=== PATIENT | female | born 1945 | race Caucasian/White ===

== ENCOUNTER 2016-11-29 17:04 | Inpatient (IN) | payer OTHER ==
[~2016-11-29] VITALS: Ht 154.9 cm; Wt 86.3 kg
[~2016-11-29 17:04] MED LIST: ADVAIR 100/501 DISK IH; AMARYL1 MG PO; AMBIEN10 MG PO; APRESOLINE25 MG PO; ASPIR 8181 M1 PO; AUGMENTIN500 MG PO; CARBIDOPA-LEVO1 EAC7 PO; CARDIZEM CD,CA180 MG PO; CELEXA20 MG PO; CRESTOR5 MG PO; DOXYCYCLINE HY100 M3 PO; ENDOCET 5-3251 EACH PO; ESTRACE2 MG PO; GLUCOPHAGE1000 MG PO; IBUPROFEN200 M1 PO; IRON18 MG PO; LEVEMIR100 UNIT/2 SC; LEVOFLOXACIN250 MG PO; LIPITOR10 MG PO; LO-DOSE ASPIRIN81 M2 PO; NEURONTIN400 MG PO; NITROSTAT0.4 MG SL; NORCO 5/3251 TABLET PO; NORVASC10 MG PO; PANTOPRAZOLE SO40 MG PO; PLAVIX75 MG PO; PREDNISONE20 MG PO; PRENATAL TABLE1 EAC3 PO; PRINIVIL20 MG PO; PROVENTIL,VENTOL2 MG PO; SINEMET 25-1001 EACH PO; SYNTHROID50 MCG PO; TRIAMCINOLONE A15 GM TP; VENTOLIN HFA18 GM IH; ZOFRAN4 MG PO; ZOLPIDEM TARTRA10 MG PO
[2016-11-29 18:11] LABS: EOSINOPHIL (%) 0.3 % (0-5); HEMATOCRIT 30.3 % (36.0-46.0); IMMATURE GRANULOCYTE (%) 0.1 % (0.0-0.7); IMMATURE GRANULOCYTE COUNT 0.1 K/uL; LYMPHOCYTE COUNT 1.9 K/uL (1.0-2.8); MCH 24.6 PG (29.0-34.0); MCHC 31.7 G/DL (30.0-36.0); MCV 77.5 FL (83-99); MEAN PLAT.VOLUME 10.6 uM^3 (9.5-12.4); MONOCYTE (%) 6.6 % (3-12); MONOCYTE COUNT 0.8 K/uL (0-0.8); NEUTROPHIL (%) 77.7 % (45-76); NEUTROPHIL COUNT 9.6 K/uL (1.8-6.4); PLATELET COUNT 243 K/uL (156-360); RBC DIS.WIDTH-CV 15.2 % (11.8-14.6); RBC DIS.WIDTH-SD 41.8 % (39-53); RED BLOOD COUNT 3.91 M/uL (3.80-5.20); WHITE BLOOD COUNT 12.3 K/uL (4.1-10.2)
[2016-11-29 18:25] LABS: CHLORIDE 104 mEq/L (99-109); POTASSIUM 3.7 mEq/L (3.7-5.4); SODIUM 136 mEq/L (136-147)
[2016-11-29 18:27] LABS: GLUCOSE 141 mg/dL (70-99)
[2016-11-29 18:28] LABS: ANION GAP 12 MEQ/L (2-14)
[2016-11-29 18:29] LABS: TOTAL BILIRUBIN 0.4 mg/dL (0.0-1.0)
[2016-11-29 18:30] LABS: ALKALINE PHOSPHATASE 90 IU/L (3-129); GFR ESTIMATE (CALCULATED) > 59 mL/min/
[2016-11-29 18:32] LABS: UREA NITROGEN (BUN) 11 mg/dL (9-23)
[2016-11-29 18:33] LABS: TROP-I INTERPRETATION NEGATIVE; TROPONIN-I < 0.01 ng/mL (0.0-0.30)
[2016-11-30 00:09] LABS: POINT-OF-CARE METER ID UU13113831
[2016-11-30 00:10] VITALS: BP 183/70
[2016-11-30 01:03] LABS: TROP-I INTERPRETATION NEGATIVE; TROPONIN-I < 0.01 ng/mL (0.0-0.30)
[2016-11-30 04:45] VITALS: BP 140/63
[2016-11-30 07:11] LABS: TROP-I INTERPRETATION NEGATIVE; TROPONIN-I < 0.01 ng/mL (0.0-0.30)
[2016-11-30 07:27] LABS: POINT-OF-CARE METER ID UU14162513
[2016-11-30 07:29] LABS: MCH 24.1 PG (29.0-34.0); MCHC 30.7 G/DL (30.0-36.0); MCV 78.5 FL (83-99); MEAN PLAT.VOLUME 10.7 uM^3 (9.5-12.4); PLATELET COUNT 202 K/uL (156-360); RBC DIS.WIDTH-CV 15.4 % (11.8-14.6); RED BLOOD COUNT 3.44 M/uL (3.80-5.20)
[2016-11-30 07:30] LABS: WHITE BLOOD COUNT 7.4 K/uL (4.1-10.2)
[2016-11-30 07:34] LABS: ALKALINE PHOSPHATASE 85 IU/L (3-129); ANION GAP 7 MEQ/L (2-14); CHLORIDE 102 MEQ/L (99-109); GFR ESTIMATE (CALCULATED) 58 mL/min/; GLUCOSE 109 mg/dL (70-99); IRON 22 MCG/DL (35-150); POTASSIUM 3.6 MEQ/L (3.7-5.4); SAMPLE HEMOLYSIS CHECK 0; SAMPLE ICTERIC CHECK 0; SAMPLE LIPEMIA CHECK 0; SODIUM 137 MEQ/L (136-147); TOTAL BILIRUBIN 0.4 MG/DL (0.0-1.0); UREA NITROGEN (BUN) 12 mg/dL (9-23)
[2016-11-30 08:00] VITALS: BP 118/58
[2016-11-30 12:00] VITALS: BP 133/63
[2016-11-30 12:47] LABS: POINT-OF-CARE METER ID UU14162513
[2016-11-30 16:00] VITALS: BP 118/58
[2016-11-30 17:25] LABS: POINT-OF-CARE METER ID UU14162513
[2016-11-30 19:15] VITALS: BP 156/62
[2016-11-30 22:11] LABS: POINT-OF-CARE METER ID UU14162513
[2016-12-01 00:18] VITALS: BP 136/63
[2016-12-01 04:58] VITALS: BP 124/58
[2016-12-01 07:10] LABS: HEMATOCRIT 25.6 % (36.0-46.0); MCH 23.6 PG (29.0-34.0); MCHC 30.1 G/DL (30.0-36.0); MCV 78.5 FL (83-99); MEAN PLAT.VOLUME 10.5 uM^3 (9.5-12.4); PLATELET COUNT 202 K/uL (156-360); RBC DIS.WIDTH-CV 15.8 % (11.8-14.6); RBC DIS.WIDTH-SD 45.5 % (39-53); RED BLOOD COUNT 3.26 M/uL (3.80-5.20)
[2016-12-01 07:26] LABS: POINT-OF-CARE METER ID UU13113700
[2016-12-01 08:15] VITALS: BP 118/57
[2016-12-01 12:00] VITALS: BP 119/56
[2016-12-01 12:20] LABS: POINT-OF-CARE METER ID UU14162513
[2016-12-01 16:02] VITALS: BP 111/54
[2016-12-01 16:08] LABS: HEMATOCRIT 27.4 % (36.0-46.0); MCV 78.7 FL (83-99)
[2016-12-01 19:15] VITALS: BP 145/62
[2016-12-01 21:23] LABS: POINT-OF-CARE METER ID UU14162513
[2016-12-02 05:52] LABS: HEMATOCRIT 28.7 % (36.0-46.0); MCHC 30.7 G/DL (30.0-36.0); MCV 78.4 FL (83-99); MEAN PLAT.VOLUME 10.2 uM^3 (9.5-12.4); PLATELET COUNT 219 K/uL (156-360); RBC DIS.WIDTH-CV 15.9 % (11.8-14.6); RBC DIS.WIDTH-SD 45.2 % (39-53); RED BLOOD COUNT 3.66 M/uL (3.80-5.20); WHITE BLOOD COUNT 6.9 K/uL (4.1-10.2)
[2016-12-02 05:57] VITALS: BP 131/60
[2016-12-02 07:45] VITALS: BP 107/81; BP 149/87
[2016-12-02 08:54] LABS: POINT-OF-CARE METER ID UU13113831
[2016-12-02 10:41] LABS: HEMATOCRIT 28.6 % (36.0-46.0); MCHC 30.4 G/DL (30.0-36.0); MCV 78.8 FL (83-99); MEAN PLAT.VOLUME 10.8 uM^3 (9.5-12.4); PLATELET COUNT 218 K/uL (156-360); RBC DIS.WIDTH-CV 15.9 % (11.8-14.6); RBC DIS.WIDTH-SD 46.3 % (39-53); RED BLOOD COUNT 3.63 M/uL (3.80-5.20); WHITE BLOOD COUNT 6.9 K/uL (4.1-10.2)
[2016-12-02 11:18] LABS: ANION GAP 13 MEQ/L (2-14); CHLORIDE 97 MEQ/L (99-109); GFR ESTIMATE (CALCULATED) 52 mL/min/; GLUCOSE 424 mg/dL (70-99); MAGNESIUM 1.7 mg/dl (1.3-2.7); POTASSIUM 4.3 MEQ/L (3.7-5.4); SAMPLE HEMOLYSIS CHECK 0; SAMPLE ICTERIC CHECK 0; SAMPLE LIPEMIA CHECK 0; SODIUM 132 MEQ/L (136-147); UREA NITROGEN (BUN) 22 mg/dL (9-23)
[2016-12-02 12:45] VITALS: BP 114/56
[2016-12-02 16:27] VITALS: BP 124/56
[2016-12-02 20:11] VITALS: BP 116/56
[2016-12-02 23:39] VITALS: BP 143/61
[2016-12-03 04:07] VITALS: BP 120/56
[2016-12-03 06:30] LABS: HEMATOCRIT 26.9 % (36.0-46.0); MCH 24.1 PG (29.0-34.0); MCHC 30.9 G/DL (30.0-36.0); MEAN PLAT.VOLUME 10.4 uM^3 (9.5-12.4); PLATELET COUNT 233 K/uL (156-360); RBC DIS.WIDTH-CV 16.3 % (11.8-14.6); RBC DIS.WIDTH-SD 46.3 % (39-53); RED BLOOD COUNT 3.45 M/uL (3.80-5.20)
[2016-12-03 06:31] LABS: WHITE BLOOD COUNT 13.2 K/uL (4.1-10.2)
[2016-12-03 07:41] LABS: ANION GAP 12 MEQ/L (2-14); CHLORIDE 99 MEQ/L (99-109); GFR ESTIMATE (CALCULATED) 43 mL/min/; GLUCOSE 238 mg/dL (70-99); POTASSIUM 5.1 MEQ/L (3.7-5.4); SAMPLE HEMOLYSIS CHECK 0; SAMPLE ICTERIC CHECK 0; SAMPLE LIPEMIA CHECK 0; SODIUM 134 MEQ/L (136-147)
[2016-12-03 07:53] LABS: MAGNESIUM 2.1 mg/dl (1.3-2.7); UREA NITROGEN (BUN) 39 mg/dL (9-23)
[2016-12-03 08:00] VITALS: BP 108/55
[2016-12-03 12:00] VITALS: BP 100/49
[2016-12-03 16:20] VITALS: BP 119/57
[2016-12-03 23:20] VITALS: BP 177/76
[2016-12-04 07:12] VITALS: BP 120/58
[2016-12-04 10:08] LABS: ANION GAP 9 MEQ/L (2-14); CHLORIDE 105 MEQ/L (99-109); POTASSIUM 4.5 MEQ/L (3.7-5.4); SAMPLE HEMOLYSIS CHECK 0; SAMPLE ICTERIC CHECK 0; SAMPLE LIPEMIA CHECK 0; SODIUM 140 MEQ/L (136-147)
[2016-12-04 10:26] LABS: GFR ESTIMATE (CALCULATED) 47 mL/min/; GLUCOSE 113 mg/dL (70-99); UREA NITROGEN (BUN) 34 mg/dL (9-23)
[2016-12-04 11:23] LABS: HEMATOCRIT 26.8 % (36.0-46.0); MCH 24.4 PG (29.0-34.0); MCHC 31.7 G/DL (30.0-36.0); MEAN PLAT.VOLUME 10.3 uM^3 (9.5-12.4); PLATELET COUNT 253 K/uL (156-360); RBC DIS.WIDTH-CV 16.3 % (11.8-14.6); RBC DIS.WIDTH-SD 45.4 % (39-53); RED BLOOD COUNT 3.48 M/uL (3.80-5.20); WHITE BLOOD COUNT 14.1 K/uL (4.1-10.2)
[2016-12-04 11:40] VITALS: BP 137/63
[2016-12-04 11:47] LABS: ADD MIUA? YES; BILIRUBIN NEGATIVE; BLOOD NEGATIVE; COLOR YELLOW ((YELLOW)); GLUCOSE (STRIP) NEGATIVE; KETONES NEGATIVE; LEUKOCYTES LARGE; NITRITE NEGATIVE; PH, URINE 6.5 (5-8); PROTEIN (STRIP) NEGATIVE; SPECIFIC GRAVITY 1.008 (1.000-1.030); UROBILINOGEN 0.2 MG/DL (0.2-1.0)
[2016-12-04 11:49] LABS: BACTERIA NONE SEEN; CASTS NONE SEEN /LPF; CRYSTALS NONE SEEN; MUCUS NONE SEEN; PATHOLOGICAL CAST NONE SEEN; RED BLOOD CELLS 0-5 /HPF (0-5); SMALL ROUND CELL NONE SEEN; YEAST-LIKE CELL PRESENT
[2016-12-04 11:55] LABS: Estimated Average Glucose 169 mg/dL (70-123); HEMOGLOBIN A1c (GLYCOHEMOGLOB) 7.5 % HGB (Below 5.7)
[2016-12-04 12:06] LABS: EPITHELIAL CELLS 1+
[2016-12-04 12:07] LABS: UCUL ADDED? NO; WHITE BLOOD CELLS 20-30 /HPF (0-5)
[2016-12-04 16:03] LABS: POINT-OF-CARE METER ID UU13113831
[2016-12-04 16:20] LABS: POINT-OF-CARE METER ID UU13113694
[2016-12-04 17:01] LABS: POINT-OF-CARE METER ID UU13113819
[2016-12-04 17:46] VITALS: BP 155/67
[2016-12-04 19:20] VITALS: BP 148/62
[2016-12-05 03:41] VITALS: BP 138/65
[2016-12-05 08:07] LABS: ALKALINE PHOSPHATASE 71 IU/L (3-129); ANION GAP 9 MEQ/L (2-14); CHLORIDE 102 MEQ/L (99-109); GFR ESTIMATE (CALCULATED) 43 mL/min/; GLUCOSE 132 mg/dL (70-99); POTASSIUM 4.3 MEQ/L (3.7-5.4); SAMPLE HEMOLYSIS CHECK 0; SAMPLE ICTERIC CHECK 0; SAMPLE LIPEMIA CHECK 0; SODIUM 136 MEQ/L (136-147); TOTAL BILIRUBIN 0.3 MG/DL (0.0-1.0); UREA NITROGEN (BUN) 30 mg/dL (9-23)
[2016-12-05 08:16] LABS: EOSINOPHIL (%) 0.4 % (0-5); HEMATOCRIT 31.3 % (36.0-46.0); IMMATURE GRANULOCYTE (%) 0.1 % (0.0-0.7); LYMPHOCYTE COUNT 0.4 K/uL (1.0-2.8); MCH 23.8 PG (29.0-34.0); MCHC 30.7 G/DL (30.0-36.0); MCV 77.7 FL (83-99); MEAN PLAT.VOLUME 10.6 uM^3 (9.5-12.4); MONOCYTE (%) 9.1 % (3-12); MONOCYTE COUNT 0.7 K/uL (0-0.8); NEUTROPHIL (%) 84.5 % (45-76); PLATELET COUNT 226 K/uL (156-360); RBC DIS.WIDTH-CV 16.3 % (11.8-14.6); RBC DIS.WIDTH-SD 46.6 % (39-53); RED BLOOD COUNT 4.03 M/uL (3.80-5.20)
[2016-12-05 08:17] LABS: WHITE BLOOD COUNT 7.1 K/uL (4.1-10.2)
[2016-12-05 08:19] VITALS: BP 194/81
[2016-12-05 18:11] LABS: C DIFF TOXIN NEGATIVE (NEGATIVE)
[2016-12-05 18:15] LABS: PROBE CHECK PASS; SPECIMEN PROCESSING CONTROL PASS
[2016-12-05 18:17] VITALS: BP 116/58
[2016-12-05 19:27] VITALS: BP 144/62
[2016-12-05 23:34] VITALS: BP 141/67
[2016-12-06 03:34] VITALS: BP 155/68
[2016-12-06 06:24] LABS: HEMATOCRIT 26.7 % (36.0-46.0); MCH 24.6 PG (29.0-34.0); MCHC 31.8 G/DL (30.0-36.0); MCV 77.4 FL (83-99); MEAN PLAT.VOLUME 10.2 uM^3 (9.5-12.4); PLATELET COUNT 196 K/uL (156-360); RBC DIS.WIDTH-CV 16.2 % (11.8-14.6); RBC DIS.WIDTH-SD 46.3 % (39-53); RED BLOOD COUNT 3.45 M/uL (3.80-5.20); WHITE BLOOD COUNT 5.6 K/uL (4.1-10.2)
[2016-12-06 06:48] LABS: EOSINOPHIL (%) 0.5 % (0-5); IMMATURE GRANULOCYTE (%) 0.5 % (0.0-0.7); LYMPHOCYTE COUNT 1.2 K/uL (1.0-2.8); MONOCYTE (%) 8.8 % (3-12); MONOCYTE COUNT 0.5 K/uL (0-0.8); NEUTROPHIL COUNT 3.8 K/uL (1.8-6.4)
[2016-12-06 07:17] LABS: ALKALINE PHOSPHATASE 62 IU/L (3-129); ANION GAP 7 MEQ/L (2-14); CHLORIDE 103 MEQ/L (99-109); GFR ESTIMATE (CALCULATED) 52 mL/min/; GLUCOSE 151 mg/dL (70-99); POTASSIUM 3.9 MEQ/L (3.7-5.4); SAMPLE HEMOLYSIS CHECK 0; SAMPLE ICTERIC CHECK 0; SAMPLE LIPEMIA CHECK 0; SODIUM 135 MEQ/L (136-147); TOTAL BILIRUBIN 0.3 MG/DL (0.0-1.0); UREA NITROGEN (BUN) 18 mg/dL (9-23)
[2016-12-06 07:22] VITALS: BP 144/67
[2016-12-06 12:49] LABS: HEMATOCRIT 28.3 % (36.0-46.0); MCHC 31.1 G/DL (30.0-36.0); MCV 77.3 FL (83-99); MEAN PLAT.VOLUME 10.3 uM^3 (9.5-12.4); PLATELET COUNT 230 K/uL (156-360); RBC DIS.WIDTH-CV 16.2 % (11.8-14.6); RBC DIS.WIDTH-SD 45.9 % (39-53); RED BLOOD COUNT 3.66 M/uL (3.80-5.20); WHITE BLOOD COUNT 6.5 K/uL (4.1-10.2)
[2016-12-06 13:30] LABS: ANION GAP 10 MEQ/L (2-14); CHLORIDE 101 MEQ/L (99-109); GFR ESTIMATE (CALCULATED) 47 mL/min/; GLUCOSE 274 mg/dL (70-99); POTASSIUM 4.2 MEQ/L (3.7-5.4); SAMPLE HEMOLYSIS CHECK 0; SAMPLE ICTERIC CHECK 0; SAMPLE LIPEMIA CHECK 0; SODIUM 134 MEQ/L (136-147); UREA NITROGEN (BUN) 18 mg/dL (9-23)
[2016-12-06 15:12] VITALS: BP 133/63
[2016-12-06 22:53] VITALS: BP 186/79
[2016-12-07 06:49] LABS: EOSINOPHIL (%) 0.4 % (0-5); HEMATOCRIT 27.1 % (36.0-46.0); IMMATURE GRANULOCYTE (%) 0.5 % (0.0-0.7); LYMPHOCYTE COUNT 1.6 K/uL (1.0-2.8); MCH 24.3 PG (29.0-34.0); MCHC 31.7 G/DL (30.0-36.0); MCV 76.6 FL (83-99); MEAN PLAT.VOLUME 9.9 uM^3 (9.5-12.4); MONOCYTE (%) 11.4 % (3-12); MONOCYTE COUNT 0.9 K/uL (0-0.8); NEUTROPHIL COUNT 5.3 K/uL (1.8-6.4); PLATELET COUNT 226 K/uL (156-360); RBC DIS.WIDTH-CV 15.7 % (11.8-14.6); RBC DIS.WIDTH-SD 44.6 % (39-53); RED BLOOD COUNT 3.54 M/uL (3.80-5.20); WHITE BLOOD COUNT 7.9 K/uL (4.1-10.2)
[2016-12-07 08:00] VITALS: BP 164/70
[2016-12-07 09:12] LABS: ALKALINE PHOSPHATASE 76 IU/L (3-129); ANION GAP 9 MEQ/L (2-14); CHLORIDE 103 MEQ/L (99-109); GFR ESTIMATE (CALCULATED) 58 mL/min/; GLUCOSE 181 mg/dL (70-99); POTASSIUM 4.1 MEQ/L (3.7-5.4); SAMPLE HEMOLYSIS CHECK 0; SAMPLE ICTERIC CHECK 0; SAMPLE LIPEMIA CHECK 0; SODIUM 137 MEQ/L (136-147); UREA NITROGEN (BUN) 15 mg/dL (9-23)
[2016-12-07 09:13] LABS: TOTAL BILIRUBIN 0.2 MG/DL (0.0-1.0)
[2016-12-07] MEDS ORDERED: LIDOCAINE700 MG TD (11:12)
[2016-12-07] MEDS ORDERED: SPIRIVA RESPIMAT4 GM IH (11:13)
[2016-12-07] MEDS ORDERED: PREDNISONE10 MG PO (11:13)
[2016-12-07] MEDS ORDERED: VENTOLIN HFA18 GM IH (11:14)
[2016-12-07 15:41] VITALS: BP 146/65
== END 2016-12-07 18:58 | disposition home or self-care (01) | DRG 191 ==
LOC: EME 17:04 → 5WEST 22:41 → EDOF 22:41 → 5WEST 23:34 → 2EASTP 11-30 10:29 → 2EAST 12-02 10:16 → 5WEST 12-02 12:35 → 2EASTP 12-02 12:47 → 2EAST 12-04 19:16
PROVIDERS: Emergency Medicine; Hospitalist; Internal Medicine
DX: J44.1 Chronic obstructive pulmonary disease with (acute) exacerbation (principal); K92.1 Melena; R07.89 Other chest pain; I10 Essential (primary) hypertension; K21.9 Gastro-esophageal reflux disease without esophagitis; D50.9 Iron deficiency anemia, unspecified; E03.9 Hypothyroidism, unspecified; E11.65 Type 2 diabetes mellitus with hyperglycemia; R79.89 Other specified abnormal findings of blood chemistry; R10.13 Epigastric pain; R13.10 Dysphagia, unspecified
CPT/HCPCS: 71010; 71020; 71100; 71260; 74000; 78582; 80048; 80048 91; 80053; 81003; 82272; 82607; 82746; 82948; 83036; 83540; 83605; 83735; 83880; 84466; 84484; 85014; 85018; 85025; 85027; 85379; 86850; 86900; 86901; 87040; 87493; 93005; 94640; 94640 76; 94760; 94799; 97530 GO; 97530 GP; 99202; 99281; 99284; A9540; A9567; G0378; J1650; J1815; J2270; J2405; J3010; J7512

== ENCOUNTER 2017-01-05 10:59 | Emergency (ER) | payer OTHER ==
[~2017-01-05] VITALS: Ht 154.9 cm; Wt 82.3 kg
[~2017-01-05 10:59] MED LIST changes: +LIDOCAINE700 MG TD; +PREDNISONE10 MG PO; +SPIRIVA RESPIMAT4 GM IH
[2017-01-05 12:09] LABS: HEMATOCRIT 34.2 % (36.0-46.0); MCH 22.8 PG (29.0-34.0); MCHC 31.3 G/DL (30.0-36.0); MCV 72.9 FL (83-99); MEAN PLAT.VOLUME 10.9 uM^3 (9.5-12.4); PLATELET COUNT 246 K/uL (156-360); RBC DIS.WIDTH-CV 17.5 % (11.8-14.6); RBC DIS.WIDTH-SD 41.2 % (39-53); RED BLOOD COUNT 4.69 M/uL (3.80-5.20)
[2017-01-05 12:10] LABS: DELETE MACHINE DIFF? YES
[2017-01-05 12:25] LABS: CHLORIDE 102 mEq/L (99-109); SODIUM 138 mEq/L (136-147)
[2017-01-05 12:27] LABS: GLUCOSE 173 mg/dL (70-99)
[2017-01-05 12:28] LABS: ANION GAP 17 MEQ/L (2-14)
[2017-01-05 12:29] LABS: TOTAL BILIRUBIN 0.7 mg/dL (0.0-1.0)
[2017-01-05 12:31] LABS: ALKALINE PHOSPHATASE 99 IU/L (3-129); GFR ESTIMATE (CALCULATED) 58 mL/min/
[2017-01-05 12:32] LABS: UREA NITROGEN (BUN) 15 mg/dL (9-23)
[2017-01-05 13:20] LABS: ABS NEUTROPHIL COUNT 10.51; EOSINOPHIL ABS CT 0.39; MICROCYTOSIS 2+; PLAT.SUFFICIENCY ADEQUATE; USER ID STC
[2017-01-05] MEDS ORDERED: NAPROXEN500 MG PO (16:12)
[2017-01-05 17:17] VITALS: BP 172/98
== END 2017-01-05 17:23 | disposition home or self-care (01) ==
LOC: EME → EDBD 10:59 → EME 17:23
PROVIDERS: Physician Assistant
PROC: 0H9FXZZ Drainage of Right Hand Skin, External Approach (ICD-10-PCS; principal; 2017-01-05)
DX: L03.113 Cellulitis of right upper limb (principal); L02.511 Cutaneous abscess of right hand; J45.909 Unspecified asthma, uncomplicated; G89.29 Other chronic pain; E11.9 Type 2 diabetes mellitus without complications; M79.7 Fibromyalgia; I10 Essential (primary) hypertension; K21.9 Gastro-esophageal reflux disease without esophagitis; Z87.442 Personal history of urinary calculi; Z79.84 Long term (current) use of oral hypoglycemic drugs; Z79.82 Long term (current) use of aspirin; Z87.891 Personal history of nicotine dependence
CPT/HCPCS: 73201; 80053; 82803; 83605; 85025; 87040; 87070; 87075; 87077; 87147; 87186; 87205; 99281; 99285; J3370; J7120

== ENCOUNTER 2017-01-07 13:28 | Emergency (ER) | payer OTHER ==
[~2017-01-07] VITALS: Ht 154.9 cm; Wt 82.0 kg
[~2017-01-07 13:28] MED LIST changes: +NAPROXEN500 MG PO
[2017-01-07 15:08] LABS: HEMATOCRIT 28.1 % (36.0-46.0); MCH 22.4 PG (29.0-34.0); MCV 72.4 FL (83-99); MEAN PLAT.VOLUME 9.8 uM^3 (9.5-12.4); PLATELET COUNT 269 K/uL (156-360); RBC DIS.WIDTH-CV 15.6 % (11.8-14.6); RBC DIS.WIDTH-SD 40.2 % (39-53); RED BLOOD COUNT 3.88 M/uL (3.80-5.20); WHITE BLOOD COUNT 8.9 K/uL (4.1-10.2)
[2017-01-07 15:11] LABS: CHLORIDE 106 mEq/L (99-109); POTASSIUM 3.4 mEq/L (3.7-5.4); SODIUM 138 mEq/L (136-147)
[2017-01-07 15:14] LABS: GLUCOSE 160 mg/dL (70-99)
[2017-01-07 15:15] LABS: ANION GAP 7 MEQ/L (2-14)
[2017-01-07 15:17] LABS: ALKALINE PHOSPHATASE 80 IU/L (3-129); GFR ESTIMATE (CALCULATED) 52 mL/min/
[2017-01-07 15:18] LABS: UREA NITROGEN (BUN) 13 mg/dL (9-23)
[2017-01-07 15:19] LABS: TOTAL BILIRUBIN 0.4 mg/dL (0.0-1.0)
[2017-01-07 15:27] LABS: ADD MIUA? YES; BILIRUBIN NEGATIVE; BLOOD NEGATIVE; COLOR YELLOW ((YELLOW)); GLUCOSE (STRIP) 50; KETONES NEGATIVE; LEUKOCYTES NEGATIVE; NITRITE NEGATIVE; PROTEIN (STRIP) NEGATIVE; SPECIFIC GRAVITY 1.012 (1.000-1.030); UROBILINOGEN 0.2 MG/DL (0.2-1.0)
[2017-01-07 15:35] LABS: BACTERIA RARE /HPF; EPITHELIAL CELLS RARE /HPF; MUCUS TRACE /LPF; RED BLOOD CELLS 0-5 /HPF (0-5); UCUL ADDED? NO; WHITE BLOOD CELLS 0-5 /HPF (0-5)
[2017-01-07 17:28] LABS: POINT-OF-CARE METER ID UU13113702
[2017-01-07 22:29] VITALS: BP 170/99
== END 2017-01-07 22:34 | disposition home or self-care (01) ==
LOC: EME 13:28
PROVIDERS: Emergency Medicine
PROC: 0T9B70Z Drainage of Bladder with Drainage Device, Via Natural or Artificial Opening (ICD-10-PCS; principal; 2017-01-07)
DX: R33.9 Retention of urine, unspecified (principal); M54.5 Low back pain; J45.909 Unspecified asthma, uncomplicated; G89.29 Other chronic pain; E11.9 Type 2 diabetes mellitus without complications; M79.7 Fibromyalgia; I10 Essential (primary) hypertension; K21.9 Gastro-esophageal reflux disease without esophagitis; Z87.442 Personal history of urinary calculi; Z87.891 Personal history of nicotine dependence
CPT/HCPCS: 74176; 80053; 81003; 82948; 85027; 99281; 99285; J1885

== ENCOUNTER 2017-05-06 23:06 | Observation (INO) | payer OTHER ==
[~2017-05-06] VITALS: Ht 154.9 cm; Wt 84.8 kg
[2017-05-07 00:31] LABS: CHLORIDE 105 mEq/L (99-109); POTASSIUM 3.6 mEq/L (3.7-5.4); SODIUM 138 mEq/L (136-147)
[2017-05-07 00:32] LABS: MCH 20.5 PG (29.0-34.0); MCV 70.7 FL (83-99); PLATELET COUNT 273 K/uL (156-360); RBC DIS.WIDTH-CV 16.9 % (11.8-14.6); RBC DIS.WIDTH-SD 43.2 % (39-53); WHITE BLOOD COUNT 6.7 K/uL (4.1-10.2)
[2017-05-07 00:33] LABS: GLUCOSE 203 mg/dL (70-99)
[2017-05-07 00:34] LABS: ANION GAP 9 MEQ/L (2-14)
[2017-05-07 00:37] LABS: GFR ESTIMATE (CALCULATED) 47 mL/min/
[2017-05-07 00:38] LABS: UREA NITROGEN (BUN) 12 mg/dL (9-23)
[2017-05-07 00:43] LABS: TROP-I INTERPRETATION NEGATIVE; TROPONIN-I 0.01 ng/mL (0.0-0.30)
[2017-05-07 04:49] VITALS: BP 192/88
[2017-05-07 06:44] LABS: HEMATOCRIT 29.7 % (36.0-46.0); MCH 20.9 PG (29.0-34.0); MCV 69.9 FL (83-99); PLATELET COUNT 294 K/uL (156-360); RBC DIS.WIDTH-CV 16.9 % (11.8-14.6); RBC DIS.WIDTH-SD 42.5 % (39-53); RED BLOOD COUNT 4.25 M/uL (3.80-5.20); WHITE BLOOD COUNT 7.2 K/uL (4.1-10.2)
[2017-05-07 06:55] LABS: TROP-I INTERPRETATION NEGATIVE; TROPONIN-I < 0.01 ng/mL (0.0-0.30)
[2017-05-07 07:09] VITALS: BP 171/73
[2017-05-07 07:12] LABS: ALKALINE PHOSPHATASE 103 IU/L (3-129); ANION GAP 9 MEQ/L (2-14); CHLORIDE 104 MEQ/L (99-109); GFR ESTIMATE (CALCULATED) 58 mL/min/; GLUCOSE 176 mg/dL (70-99); POTASSIUM 3.5 MEQ/L (3.7-5.4); SAMPLE HEMOLYSIS CHECK 0; SAMPLE ICTERIC CHECK 0; SAMPLE LIPEMIA CHECK 0; SODIUM 140 MEQ/L (136-147); TOTAL BILIRUBIN 0.2 MG/DL (0.0-1.0); UREA NITROGEN (BUN) 13 mg/dL (9-23)
[2017-05-07 08:11] LABS: FERRITIN 11 NG/ML (10-291)
[2017-05-07 08:23] LABS: POINT-OF-CARE METER ID UU13113831
[2017-05-07 11:22] VITALS: BP 191/73
[2017-05-07 11:30] VITALS: BP 136/70
[2017-05-07] MEDS ORDERED: AMBIEN10 MG PO (12:05)
[2017-05-07 13:17] LABS: TROP-I INTERPRETATION NEGATIVE; TROPONIN-I < 0.01 ng/mL (0.0-0.30)
[2017-05-07 13:23] LABS: POINT-OF-CARE METER ID UU14162513
[2017-05-07] MEDS ORDERED: HYDROCHLOROTH12.5 M3 PO (14:35)
[2017-05-07] MEDS ORDERED: K-DUR10 MEQ PO (14:36)
== END 2017-05-07 16:29 | disposition home or self-care (01) ==
LOC: EME 23:06 → EDOF 05-07 03:14 → 5WEST 05-07 04:42
PROVIDERS: Emergency Medicine; Hospitalist; Internal Medicine
DX: R07.9 Chest pain, unspecified (principal); R06.00 Dyspnea, unspecified; R60.0 Localized edema; I10 Essential (primary) hypertension; E11.9 Type 2 diabetes mellitus without complications; K21.9 Gastro-esophageal reflux disease without esophagitis; I25.10 Atherosclerotic heart disease of native coronary artery without angina pectoris; Z87.891 Personal history of nicotine dependence; E66.01 Morbid (severe) obesity due to excess calories; Z68.35 Body mass index [BMI] 35.0-35.9, adult; I44.7 Left bundle-branch block, unspecified; E03.9 Hypothyroidism, unspecified; J45.909 Unspecified asthma, uncomplicated; D50.9 Iron deficiency anemia, unspecified; R00.2 Palpitations; R05 Cough
CPT/HCPCS: 71020; 80048; 80053; 82272; 82607; 82728; 82746; 82948; 83880; 84484; 85027; 86900; 86901; 93005; 93970; 94640; 99202; 99281; 99285; G0378; J0360; J1644; J1815; J1940; J3480

== ENCOUNTER 2017-12-12 18:46 | Emergency (ER) | payer OTHER ==
[~2017-12-12] VITALS: Ht 154.9 cm; Wt 80.1 kg
[~2017-12-12 18:46] MED LIST changes: +HYDROCHLOROTH12.5 M3 PO; +K-DUR10 MEQ PO
[2017-12-12 22:06] LABS: CHLORIDE 100 mEq/L (99-109); POTASSIUM 3.3 mEq/L (3.7-5.4); SODIUM 138 mEq/L (136-147)
[2017-12-12 22:08] LABS: GLUCOSE 233 mg/dL (70-99)
[2017-12-12 22:11] LABS: CREATININE 1.3 mg/dL (0.6-1.3); GFR ESTIMATE (CALCULATED) 43 mL/min/
[2017-12-12 22:12] LABS: UREA NITROGEN (BUN) 17 mg/dL (9-23)
[2017-12-12 22:17] LABS: BASOPHIL (%) 0.3 % (0-1); EOSINOPHIL (%) 0.1 % (0-5); HEMATOCRIT 26.6 % (36.0-46.0); HEMOGLOBIN 8.3 G/DL (11.9-15.5); IMMATURE GRANULOCYTE (%) 0.5 % (0.0-0.7); LYMPHOCYTE (%) 10.6 % (15-42); LYMPHOCYTE COUNT 1.6 K/uL (1.0-2.8); MCH 23.2 PG (29.0-34.0); MCHC 31.2 G/DL (30.0-36.0); MCV 74.5 FL (83-99); MONOCYTE (%) 7.4 % (3-12); MONOCYTE COUNT 1.1 K/uL (0-0.8); NEUTROPHIL (%) 81.1 % (45-76); NEUTROPHIL COUNT 12.6 K/uL (1.8-6.4); PLATELET COUNT 346 K/uL (156-360); RBC DIS.WIDTH-SD 46.1 % (39-53); RED BLOOD COUNT 3.57 M/uL (3.80-5.20); WHITE BLOOD COUNT 15.5 K/uL (4.1-10.2)
[2017-12-13 00:23] LABS: ALBUMIN 3.9 g/dL (3.2-4.8)
[2017-12-13 00:26] LABS: TOTAL PROTEIN 7.7 g/dL (6.4-8.3)
[2017-12-13 00:28] LABS: TOTAL BILIRUBIN 0.5 mg/dL (0.0-1.0)
[2017-12-13 00:29] LABS: ALKALINE PHOSPHATASE 99 IU/L (3-129)
[2017-12-13 00:31] LABS: AST (GOT) 16 IU/L (2-34); DIRECT BILIRUBIN 0.3 mg/dL (0.0-0.3)
[2017-12-13 00:32] LABS: ALT (GPT) 13 IU/L (3-49)
[2017-12-13] MEDS ORDERED: ZOFRAN ODT4 MG PO (02:00)
[2017-12-13 02:40] VITALS: BP 146/78
== END 2017-12-13 02:45 | disposition home or self-care (01) ==
LOC: EME 18:46
PROVIDERS: Nurse Practitioner Family
DX: J06.9 Acute upper respiratory infection, unspecified (principal); R07.81 Pleurodynia; R11.2 Nausea with vomiting, unspecified; R19.7 Diarrhea, unspecified; M54.2 Cervicalgia; M54.9 Dorsalgia, unspecified; J45.909 Unspecified asthma, uncomplicated; I10 Essential (primary) hypertension; E11.9 Type 2 diabetes mellitus without complications; Z79.84 Long term (current) use of oral hypoglycemic drugs; Z87.442 Personal history of urinary calculi; Z90.49 Acquired absence of other specified parts of digestive tract; Z90.710 Acquired absence of both cervix and uterus; Z79.890 Hormone replacement therapy; Z79.82 Long term (current) use of aspirin; Z87.891 Personal history of nicotine dependence
CPT/HCPCS: 71045; 80048; 80076; 81003; 83605; 85025; 87040; 87502; 94640; J1885; J2405

== ENCOUNTER 2018-04-21 19:55 | Inpatient (IN) | payer OTHER ==
[~2018-04-21] VITALS: Ht 154.9 cm; Wt 84.2 kg
[~2018-04-21 19:55] MED LIST changes: +ZOFRAN ODT4 MG PO
[2018-04-21 21:14] LABS: HEMATOCRIT 28.1 % (36.0-46.0); HEMOGLOBIN 8.6 G/DL (11.9-15.5); MCH 22.9 PG (29.0-34.0); MCHC 30.6 G/DL (30.0-36.0); MCV 74.9 FL (83-99); PLATELET COUNT 242 K/uL (156-360); RBC DIS.WIDTH-CV 16.8 % (11.8-14.6); RBC DIS.WIDTH-SD 45.3 % (39-53); RED BLOOD COUNT 3.75 M/uL (3.80-5.20); WHITE BLOOD COUNT 7.2 K/uL (4.1-10.2)
[2018-04-21 21:16] LABS: CHLORIDE 105 mEq/L (99-109); POTASSIUM 3.6 mEq/L (3.7-5.4); SODIUM 142 mEq/L (136-147)
[2018-04-21 21:18] LABS: GLUCOSE 81 mg/dL (70-99)
[2018-04-21 21:22] LABS: CREATININE 1.1 mg/dL (0.6-1.3); GFR ESTIMATE (CALCULATED) 52 mL/min/
[2018-04-21 21:23] LABS: UREA NITROGEN (BUN) 15 mg/dL (9-23)
[2018-04-21 21:27] LABS: TROP-I INTERPRETATION NEGATIVE; TROPONIN-I 0.01 ng/mL (0.0-0.30)
[2018-04-22] MEDS ORDERED: RANITIDINE HCL300 MG PO (01:16)
[2018-04-22] MEDS ORDERED: CLOPIDOGREL75 MG PO (01:17)
[2018-04-22 02:20] VITALS: BP 142/68
[2018-04-22 02:23] LABS: TROP-I INTERPRETATION NEGATIVE; TROPONIN-I 0.02 ng/mL (0.0-0.30)
[2018-04-22 02:45] VITALS: BP 142/64
[2018-04-22 05:20] VITALS: BP 129/58
[2018-04-22 08:08] VITALS: BP 122/65
[2018-04-22 09:01] LABS: BASOPHIL (%) 0.2 % (0-1); EOSINOPHIL (%) 0 % (0-5); HEMATOCRIT 25.7 % (36.0-46.0); HEMOGLOBIN 7.6 G/DL (11.9-15.5); IMMATURE GRANULOCYTE (%) 0.5 % (0.0-0.7); LYMPHOCYTE (%) 5.4 % (15-42); LYMPHOCYTE COUNT 0.4 K/uL (1.0-2.8); MCH 22.8 PG (29.0-34.0); MCHC 29.6 G/DL (30.0-36.0); MCV 77.2 FL (83-99); MONOCYTE (%) 0.9 % (3-12); MONOCYTE COUNT 0.1 K/uL (0-0.8); NEUTROPHIL COUNT 6.1 K/uL (1.8-6.4); PLATELET COUNT 202 K/uL (156-360); RBC DIS.WIDTH-CV 16.9 % (11.8-14.6); RBC DIS.WIDTH-SD 47.3 % (39-53); RED BLOOD COUNT 3.33 M/uL (3.80-5.20); WHITE BLOOD COUNT 6.5 K/uL (4.1-10.2)
[2018-04-22 09:19] LABS: CHLORIDE 106 MEQ/L (99-109); POTASSIUM 3.7 MEQ/L (3.7-5.4); SODIUM 139 MEQ/L (136-147)
[2018-04-22 09:21] LABS: TROP-I INTERPRETATION NEGATIVE; TROPONIN-I 0.01 ng/mL (0.0-0.30)
[2018-04-22 09:25] LABS: GFR ESTIMATE (CALCULATED) 58 mL/min/; UREA NITROGEN (BUN) 15 mg/dL (9-23)
[2018-04-22 09:26] LABS: GLUCOSE 326 mg/dL (70-99)
[2018-04-22 11:47] VITALS: BP 152/69
[2018-04-22 21:00] VITALS: BP 129/58
[2018-04-23] VITALS: BP 132/58
[2018-04-23 05:14] LABS: BASOPHIL (%) 0.1 % (0-1); EOSINOPHIL (%) 0 % (0-5); HEMATOCRIT 25.1 % (36.0-46.0); HEMOGLOBIN 7.5 G/DL (11.9-15.5); IMMATURE GRANULOCYTE (%) 0.4 % (0.0-0.7); LYMPHOCYTE (%) 6.4 % (15-42); LYMPHOCYTE COUNT 0.9 K/uL (1.0-2.8); MCH 22.7 PG (29.0-34.0); MCHC 29.9 G/DL (30.0-36.0); MCV 75.8 FL (83-99); MONOCYTE (%) 1.3 % (3-12); MONOCYTE COUNT 0.2 K/uL (0-0.8); NEUTROPHIL (%) 91.8 % (45-76); NEUTROPHIL COUNT 12.3 K/uL (1.8-6.4); PLATELET COUNT 202 K/uL (156-360); RBC DIS.WIDTH-SD 46.7 % (39-53); RED BLOOD COUNT 3.31 M/uL (3.80-5.20); WHITE BLOOD COUNT 13.4 K/uL (4.1-10.2)
[2018-04-23 05:30] VITALS: BP 140/64
[2018-04-23 05:47] LABS: CHLORIDE 106 MEQ/L (99-109); GFR ESTIMATE (CALCULATED) 58 mL/min/; GLUCOSE 252 mg/dL (70-99); SODIUM 139 MEQ/L (136-147); UREA NITROGEN (BUN) 18 mg/dL (9-23)
[2018-04-23 08:16] VITALS: BP 163/70
[2018-04-23 08:32] LABS: IRON 16 MCG/DL (35-150); TRANSFERRIN (TIBC) 294.6 mg/dL (215-380); TRANSFERRIN SATUR. 5 % (20-55)
[2018-04-23 08:55] LABS: FOLIC ACID (FOLATE) 5.5 NG/ML (5.0-22.0)
[2018-04-23 11:32] VITALS: BP 150/65
[2018-04-23 15:50] LABS: HEMATOCRIT 26.6 % (36.0-46.0); HEMOGLOBIN 7.8 G/DL (11.9-15.5); MCV 75.6 FL (83-99)
[2018-04-23 17:02] VITALS: BP 122/58
[2018-04-23 21:00] VITALS: BP 166/70
[2018-04-23 22:55] LABS: STOOL OCCULT BLD 1ST SPECIMEN NEGATIVE
[2018-04-24] VITALS (15 sets, daily range): BP systolic 133–179; BP diastolic 63–89
[2018-04-24 05:31] LABS: HEMATOCRIT 24.7 % (36.0-46.0); HEMOGLOBIN 7.4 G/DL (11.9-15.5); MCH 22.6 PG (29.0-34.0); MCV 75.3 FL (83-99); PLATELET COUNT 220 K/uL (156-360); RBC DIS.WIDTH-CV 17.3 % (11.8-14.6); RBC DIS.WIDTH-SD 47.1 % (39-53); RED BLOOD COUNT 3.28 M/uL (3.80-5.20)
[2018-04-24 05:46] LABS: CHLORIDE 106 MEQ/L (99-109); CREATININE 1.2 MG/DL (0.6-1.3); GFR ESTIMATE (CALCULATED) 47 mL/min/; GLUCOSE 263 mg/dL (70-99); POTASSIUM 4.2 MEQ/L (3.7-5.4); SODIUM 139 MEQ/L (136-147); UREA NITROGEN (BUN) 29 mg/dL (9-23)
[2018-04-25 01:12] VITALS: BP 182/80
[2018-04-25 04:44] VITALS: BP 167/83
[2018-04-25 07:22] VITALS: BP 165/75
[2018-04-25 10:44] LABS: HEMOGLOBIN A1c (GLYCOHEMOGLOB) 7.2 % (Below 5.7)
[2018-04-25 10:51] LABS: BASOPHIL (%) 0.1 % (0-1); EOSINOPHIL (%) 0.1 % (0-5); HEMATOCRIT 33.2 % (36.0-46.0); IMMATURE GRANULOCYTE (%) 1.4 % (0.0-0.7); LYMPHOCYTE (%) 11.5 % (15-42); LYMPHOCYTE COUNT 1.7 K/uL (1.0-2.8); MCH 24.1 PG (29.0-34.0); MCHC 31.3 G/DL (30.0-36.0); MCV 76.9 FL (83-99); MONOCYTE (%) 7.4 % (3-12); MONOCYTE COUNT 1.1 K/uL (0-0.8); NEUTROPHIL (%) 79.5 % (45-76); NEUTROPHIL COUNT 11.5 K/uL (1.8-6.4); NRBC (%) 0.3 /100 WBC (0-0); PLATELET COUNT 221 K/uL (156-360); RBC DIS.WIDTH-SD 47.1 % (39-53); WHITE BLOOD COUNT 14.5 K/uL (4.1-10.2)
[2018-04-25 11:00] LABS: HEMOGLOBIN 10.4 G/DL (11.9-15.5); RED BLOOD COUNT 4.32 M/uL (3.80-5.20)
[2018-04-25 16:09] VITALS: BP 163/76
[2018-04-25 17:22] LABS: APPEARANCE CLEAR ((CLEAR)); BILIRUBIN NEGATIVE; BLOOD NEGATIVE; COLOR STRAW ((YELLOW)); GLUCOSE (STRIP) NEGATIVE; KETONES NEGATIVE; LEUKOCYTES NEGATIVE; NITRITE NEGATIVE; PROTEIN (STRIP) NEGATIVE; SPECIFIC GRAVITY 1.011 (1.000-1.030); UROBILINOGEN 0.2 MG/DL (0.2-1.0)
[2018-04-26] VITALS (7 sets, daily range): BP systolic 142–228; BP diastolic 68–93
[2018-04-27 01:00] VITALS: BP 178/79
[2018-04-27 06:08] VITALS: BP 174/72
[2018-04-27 07:42] VITALS: BP 197/85
[2018-04-27 10:50] VITALS: BP 137/63
[2018-04-27] MEDS ORDERED: APRESOLINE25 MG PO (12:15)
[2018-04-27] MEDS ORDERED: LOSARTAN POTASS50 MG PO (12:15)
[2018-04-27] MEDS ORDERED: NIX COMPLET324.86 ML MC (12:24)
== END 2018-04-27 16:23 | disposition home or self-care (01) | DRG 193 ==
LOC: EME 19:55 → 4EAST 04-22 00:34 → EDOF 04-22 00:34 → ENRESERV 04-22 00:37 → EDOF 04-22 01:14 → ENRESERV 04-22 01:16 → 4EAST 04-22 02:24 → ENRESERV 04-24 22:00 → 5EAST 04-24 23:54
PROVIDERS: Hospitalist; Internal Medicine; Student in an Organized Health Care Education/Training Program
PROC: 30233N1 Transfusion of Nonautologous Red Blood Cells into Peripheral Vein, Percutaneous Approach (ICD-10-PCS; principal; 2018-04-24)
DX: J18.9 Pneumonia, unspecified organism (principal); J20.9 Acute bronchitis, unspecified; J44.0 Chronic obstructive pulmonary disease with (acute) lower respiratory infection; J96.01 Acute respiratory failure with hypoxia; J44.1 Chronic obstructive pulmonary disease with (acute) exacerbation; E11.42 Type 2 diabetes mellitus with diabetic polyneuropathy; I27.20 Pulmonary hypertension, unspecified; K92.1 Melena; D50.0 Iron deficiency anemia secondary to blood loss (chronic); K64.8 Other hemorrhoids; Z79.02 Long term (current) use of antithrombotics/antiplatelets; B85.2 Pediculosis, unspecified; I16.0 Hypertensive urgency; I10 Essential (primary) hypertension; I25.10 Atherosclerotic heart disease of native coronary artery without angina pectoris; K21.9 Gastro-esophageal reflux disease without esophagitis; M79.7 Fibromyalgia; F32.9 Major depressive disorder, single episode, unspecified; K44.9 Diaphragmatic hernia without obstruction or gangrene; E66.9 Obesity, unspecified; Z68.34 Body mass index [BMI] 34.0-34.9, adult; Z79.84 Long term (current) use of oral hypoglycemic drugs; Z79.82 Long term (current) use of aspirin; Z87.01 Personal history of pneumonia (recurrent); Z87.442 Personal history of urinary calculi; Z87.891 Personal history of nicotine dependence
CPT/HCPCS: 71046; 80048; 81003; 82272; 82607; 82746; 82948; 83036; 83540; 83605; 83880; 84466; 84484; 85014; 85018; 85025; 85027; 86850; 86900; 86901; 86920; 87040; 87449; 93005; 93306; 94640; 94640 76; 94799; 99202; 99281; 99285; C9113; J1644; J1756; J1815; J1940; J1956; J2920; J2930; J3475; J7030; J7050; J7512; P9016

== ENCOUNTER 2018-06-10 14:47 | Emergency (ER) | payer OTHER ==
[~2018-06-10] VITALS: Ht 154.9 cm; Wt 82.9 kg
[~2018-06-10 14:47] MED LIST changes: +CLOPIDOGREL75 MG PO; +LOSARTAN POTASS50 MG PO; +NIX COMPLET324.86 ML MC; +RANITIDINE HCL300 MG PO
[2018-06-10 14:52] VITALS: BP 194/103
[2018-06-10] MEDS ORDERED: KEFLEX500 MG PO (15:18)
== END 2018-06-10 15:40 | disposition home or self-care (01) ==
LOC: EME 14:47
DX: S80.862A Insect bite (nonvenomous), left lower leg, initial encounter (principal); L08.9 Local infection of the skin and subcutaneous tissue, unspecified; W57.XXXA Bitten or stung by nonvenomous insect and other nonvenomous arthropods, initial encounter; Z87.891 Personal history of nicotine dependence; Z88.6 Allergy status to analgesic agent; Z88.1 Allergy status to other antibiotic agents; Z88.8 Allergy status to other drugs, medicaments and biological substances
CPT/HCPCS: 99281; 99283

== ENCOUNTER 2018-06-18 12:00 | Emergency (ER) | payer OTHER ==
[~2018-06-18] VITALS: Ht 154.9 cm; Wt 81.6 kg
[~2018-06-18 12:00] MED LIST changes: +KEFLEX500 MG PO
[2018-06-18 13:30] VITALS: BP 174/99
== END 2018-06-18 13:30 | disposition home or self-care (01) ==
LOC: EME 12:00
DX: S80.812D Abrasion, left lower leg, subsequent encounter (principal); S80.811D Abrasion, right lower leg, subsequent encounter; W57.XXXD Bitten or stung by nonvenomous insect and other nonvenomous arthropods, subsequent encounter; E11.9 Type 2 diabetes mellitus without complications; I11.0 Hypertensive heart disease with heart failure; I50.9 Heart failure, unspecified; F32.9 Major depressive disorder, single episode, unspecified; F41.9 Anxiety disorder, unspecified; J43.9 Emphysema, unspecified; J45.909 Unspecified asthma, uncomplicated; K21.9 Gastro-esophageal reflux disease without esophagitis; M79.7 Fibromyalgia; Z79.82 Long term (current) use of aspirin; Z88.1 Allergy status to other antibiotic agents; Z87.891 Personal history of nicotine dependence
CPT/HCPCS: 99281; 99284

== ENCOUNTER 2018-07-16 15:19 | Emergency (ER) | payer OTHER ==
[~2018-07-16] VITALS: Ht 154.9 cm; Wt 82.5 kg
[2018-07-16 17:24] LABS: APPEARANCE CLEAR ((CLEAR)); BILIRUBIN NEGATIVE; BLOOD SMALL; COLOR YELLOW ((YELLOW)); GLUCOSE (STRIP) >=500; KETONES NEGATIVE; LEUKOCYTES TRACE; NITRITE NEGATIVE; PROTEIN (STRIP) 100; SPECIFIC GRAVITY 1.024 (1.000-1.030); UROBILINOGEN 0.2 MG/DL (0.2-1.0)
[2018-07-16 17:36] LABS: BACTERIA NONE SEEN /HPF; EPITHELIAL CELLS 1+ /HPF; HYALINE CASTS 0-5 /LPF; MUCUS TRACE /LPF; UCUL ADDED? YES
[2018-07-16 17:46] LABS: BASOPHIL (%) 0.5 % (0-1); EOSINOPHIL (%) 2.2 % (0-5); EOSINOPHIL COUNT 0.2 K/uL (0-0.3); HEMATOCRIT 34.9 % (36.0-46.0); HEMOGLOBIN 11.9 G/DL (11.9-15.5); IMMATURE GRANULOCYTE (%) 0.1 % (0.0-0.7); LYMPHOCYTE (%) 37.8 % (15-42); LYMPHOCYTE COUNT 2.9 K/uL (1.0-2.8); MCH 27.7 PG (29.0-34.0); MCHC 34.1 G/DL (30.0-36.0); MCV 81.2 FL (83-99); MONOCYTE (%) 9.3 % (3-12); MONOCYTE COUNT 0.7 K/uL (0-0.8); NEUTROPHIL (%) 50.1 % (45-76); NEUTROPHIL COUNT 3.9 K/uL (1.8-6.4); PLATELET COUNT 212 K/uL (156-360); RBC DIS.WIDTH-CV 17.2 % (11.8-14.6); RBC DIS.WIDTH-SD 51.1 % (39-53); WHITE BLOOD COUNT 7.7 K/uL (4.1-10.2)
[2018-07-16 17:55] LABS: ALBUMIN 3.7 g/dL (3.2-4.8); CHLORIDE 107 mEq/L (99-109); POTASSIUM 3.6 mEq/L (3.7-5.4); SODIUM 140 mEq/L (136-147)
[2018-07-16 17:56] LABS: MAGNESIUM 2.1 mg/dL (1.3-2.7)
[2018-07-16 17:58] LABS: GLUCOSE 202 mg/dL (70-99); TOTAL PROTEIN 6.6 g/dL (6.4-8.3)
[2018-07-16 18:00] LABS: TOTAL BILIRUBIN 0.3 mg/dL (0.0-1.0)
[2018-07-16 18:01] LABS: ALKALINE PHOSPHATASE 115 IU/L (3-129)
[2018-07-16 18:02] LABS: CREATININE 1.1 mg/dL (0.6-1.3); GFR ESTIMATE (CALCULATED) 52 mL/min/
[2018-07-16 18:03] LABS: AST (GOT) 16 IU/L (2-34); UREA NITROGEN (BUN) 20 mg/dL (9-23)
[2018-07-16 18:04] LABS: ALT (GPT) 13 IU/L (3-49)
[2018-07-16 18:07] LABS: TROP-I INTERPRETATION NEGATIVE; TROPONIN-I < 0.01 ng/mL (0.0-0.30)
[2018-07-16 19:06] LABS: LIPASE 31 U/L (1.0-51.0)
[2018-07-16] MEDS ORDERED: LEVAQUIN250 MG PO (19:29)
[2018-07-16] MEDS ORDERED: ZOFRAN ODT4 MG PO (19:29)
[2018-07-16 20:07] VITALS: BP 188/101
== END 2018-07-16 20:10 | disposition home or self-care (01) ==
LOC: EME 15:19
PROVIDERS: Emergency Medicine
DX: E11.65 Type 2 diabetes mellitus with hyperglycemia (principal); I11.0 Hypertensive heart disease with heart failure; I50.9 Heart failure, unspecified; N39.0 Urinary tract infection, site not specified; R11.2 Nausea with vomiting, unspecified; R05 Cough; K44.9 Diaphragmatic hernia without obstruction or gangrene; I44.7 Left bundle-branch block, unspecified; J44.9 Chronic obstructive pulmonary disease, unspecified; Z87.442 Personal history of urinary calculi; Z90.49 Acquired absence of other specified parts of digestive tract; Z90.710 Acquired absence of both cervix and uterus; Z79.84 Long term (current) use of oral hypoglycemic drugs; Z79.02 Long term (current) use of antithrombotics/antiplatelets; Z79.82 Long term (current) use of aspirin; Z87.891 Personal history of nicotine dependence
CPT/HCPCS: 71045; 74176; 80053; 81003; 82010; 82803; 83605; 83690; 83735; 83930; 84100; 84484; 85025; 87040; 87086; 93005; 99281; 99284; J0360; J2405; J3010; J7030